=== PATIENT | female | born 1975 | race American Indian/Alaskan Native ===

== ENCOUNTER 2017-04-07 08:30 | Outpatient (CLI) | payer BC ==
--- NOTE | 2017-04-07 15:12 | Ultrasound Report ---
Bilateral whole breast ultrasound including all 4 quadrants and subareolar regions. History: Recall for parenchymal asymmetries. Findings: Comparison is made to the previous recent mammogram performed at [facility] on March 12, 2017 and previous breast ultrasound performed on January 31, 2016. In the subareolar right breast, there are 2 ovoid shaped hypoechoic masses measuring 1.2 x 0.6 x 1.0 cm and 1.4 x 0.5 x 0.9 cm, which are at the 7:00 position. These correspond to the mammographic subareolar asymmetries. The margins are circumscribed and there is no associated acoustic shadowing. There are subareolar dilated ducts on the left. In the left breast, there is an ovoid-shaped isoechoic mass measuring 0.9 x 0.5 x 1.1 cm. This is located at the 8:30 position and is very superficial in location. The margins are circumscribed and there is no acoustic shadowing. This is probably unchanged compared to the previous study. There is a complex cyst adjacent to the nipple measuring 1.1 x 0.9 x 0.5 cm. This was not seen on the previous study. Impression: 1. Stable solid masses in the subareolar right breast, probably representing fibroadenomas. 2. Benign-appearing solid mass in the subareolar left breast. A complex cyst is also described. BI-RADS code: 2. Recommendation: Annual mammographic screening. Sonography as clinically indicated.
== END 2017-04-07 08:31 | disposition home or self-care (01) ==
LOC: SPVWC 08:30
PROVIDERS: ATTEND Surgery
DX: N60.02 Solitary cyst of left breast (principal); N63 Unspecified lump in breast

== ENCOUNTER 2020-10-22 14:27 | Outpatient (CLI) | payer BC ==
--- NOTE | 2020-10-23 12:02 | Mammography Report ---
DIGITAL SCREENING MAMMOGRAM WITH TOMOSYNTHESIS WITH CAD, 10/22/2020 CLINICAL INFORMATION / INDICATION: Routine Screening Mammography. TECHNIQUE: Digital bilateral 2D and 3D mammography with tomosynthesis was obtained in the craniocaud al and mediolateral oblique projections. Computer-Aided Detection (CAD) analysis was used for interp retation of this study. COMPARISON: 03/12/2017, 07/08/2016 FINDINGS: Breast Density: The breasts are heterogeneously dense, which may obscure small masses. No dominant mass, suspicious calcifications, or architectural distortion in either breast. Bilateral nodularity is stable. IMPRESSION: No mammographic evidence of malignancy. Follow up recommendation: Routine yearly BI-RADS Category 2: Benign. A "normal" or negative report should not discourage follow up or biopsy of a clinically significant f inding. A written summary of these findings will be mailed to the patient. The patient will be entered into a mammography reporting system which will generate a reminder letter for the patient's next appointmen t at the appropriate interval. The [employer] recommends yearly mammograms starting at age 40 and continuing as l ricardo as a woman is in good health. Breast MRI is recommended for women with an approximate 20-25% or greater lifetime risk of breast cancer, including women with a strong family history of breast or ova kamala cancer or who have been treated for Hodgkin's disease. Signer Name: Juvenal Aguirre MD Signed: 10/23/2020 11:58 AM Workstation Name: [id number]
== END 2020-10-22 14:28 | disposition home or self-care (01) ==
LOC: SPVWC 14:27
PROVIDERS: ATTEND Surgery
DX: Z12.31 Encounter for screening mammogram for malignant neoplasm of breast (principal); N63.10 Unspecified lump in the right breast, unspecified quadrant; N63.20 Unspecified lump in the left breast, unspecified quadrant
CPT/HCPCS: 77063; 77067